=== PATIENT | male | born 2005 | race African-American/Black ===

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

== ENCOUNTER 2024-05-18 04:20 | Emergency (ER) | payer SELFPAY ==
[2024-05-18] MEDS ORDERED: Rabies Immune Globulin/PF (HyperRAB) 300 UNIT/ML 5 ML SDV IM ONE (04:45)
[2024-05-18] MEDS ORDERED: Rabies Immune Globulin/PF (HyperRAB) 300 UNIT/ML 1 ML SDV IM ONE (04:45)
[2024-05-18] MEDS: Amoxicillin/Clavulanate K 875-125 MG Tab PO ONE (05:08)
[2024-05-18] MEDS: Diphtheria,Pertussis(Acell),Tetanus Vaccine 0.5 ML Syringe IM ONE (05:09)
[2024-05-18] MEDS: Rabies Vaccine (Avian) 2.5 Unit Inj Kit IM ONE (05:11)
[2024-05-18] MEDS: Rabies Immune Globulin/PF (HyperRAB) 300 UNIT/ML 1 ML SDV IM ONE (05:16)
== END 2024-05-18 05:45 | disposition home or self-care (01) ==
LOC: MW.ED 04:20
DX: S61.250A Open bite of right index finger without damage to nail, initial encounter (principal); Z79.2 Long term (current) use of antibiotics; W55.01XA Bitten by cat, initial encounter; Z23 Encounter for immunization
CPT/HCPCS: 90375; 90471; 90675; 90715; 96372; 99283; A9270